=== PATIENT | male | born 1955 | race Caucasian/White ===

== ENCOUNTER 2016-07-17 07:59 | Emergency (ER) | payer OTHER ==
--- NOTE | ~2016-07-17 | EKG ---
PATIENT: LULY MALIK UNIT #: [id number] Ventricular Rate: 67 BPM Atrial Rate: 67 BPM P-R Interval: 130 ms QRS Duration: 82 ms Q-T Interval: 390 ms QTC Calculation(Bezet): 412 ms P Landing: 24 degrees Calculated R Landing: 10 degrees Calculated T Landing: 21 degrees Diagnosis Line: Normal sinus rhythm Diagnosis Line: Normal ECG Diagnosis Line: When compared with ECG of 29-MAY-2011 07:39, Diagnosis Line: No significant change was found Diagnosis Line: Confirmed by SASHA CLAROS MD ([id number]) on 07/18/2016 Diagnosis Line: 8:04:12 PM INTERPRETING MD: HARLAN RED
--- NOTE | ~2016-07-17 | CT71 ---
[facility] A Service of [facility] RADIOLOGY TEXT RESULTS PATIENT: LULY MALIK LOCATION: SED : 59 UNIT #: [id number] AGE: [address]: Trever Bravo MD SEX: M ORDER DR: [id number] [place] [id number] E MR#: [id number] Acc #: [id number] NAME: LULY MALIK : 1955 SEX: M STUDY DATE/TIME: 07/17/2016 8:47 UNIT: SED ROOM: STUDY DESCRIPTION: CT Head Wo Contrast Attending Physician: Trever Bravo M.D. Ordering Physician: Trever Bravo M.D. Primary Care Physician: No Primary Care Physician MEDICAL IMAGING REPORT This report is preliminary unless electronic signature is present. EXAM CT head INDICATION Syncope. Dizziness for [address] head without contrast. This CT exam was performed with one or more of the following radiation dose reduction techniques: automatic exposure control, adjustment of mA and/or kV according to patient size, and iterative reconstruction. COMPARISON CT head dated 05/28/2011. FINDINGS There is no acute intracranial hemorrhage, mass lesion, or acute infarct. There is mild chronic small vessel ischemic changes. There is an old infarct in the right basal ganglia right caudate nucleus. The ventricles and basilar cisterns are normal in size and configuration. No extraaxial collections. No acute osseous abnormalities. Visualized paranasal sinuses and mastoid air cells are clear. IMPRESSION 1. No acute intracranial findings. 2. Chronic small vessel ischemic changes. Old lacunar infarct in the right basal ganglia and right caudate nucleus. Dictated by... [facility] A Service [facility] RADIOLOGY TEXT RESULTS PATIENT: LULY MALIK LOCATION: SED : 59 UNIT #: [id number] AGE: [address]: Trever Bravo MD SEX: M ORDER DR: Hugo Randall M.D. THIS IS AN ELECTRONICALLY VERIFIED REPORT Hugo Randall M.D. at 07/17/2016 1:59 PM LINDA/nuria TD: 07/17/2016 11:41 JOB #: [id number] MEDICAL IMAGING REPORT Page 1 of 1
--- NOTE | ~2016-07-17 | CR72 ---
[facility]. [facility] A Service of [facility] RADIOLOGY TEXT RESULTS PATIENT: LULY MALIK LOCATION: SED : 59 UNIT #: [id number] AGE: [address]: Trever Bravo MD SEX: M ORDER DR: [id number] [place] [id number] E MR#: [id number] Acc #: [id number] NAME: LULY MALIK : 1955 SEX: M STUDY DATE/TIME: 07/17/2016 8:48 UNIT: SED ROOM: STUDY DESCRIPTION: CR Chest Single View Portable Attending Physician: Trever Bravo M.D. Ordering Physician: Trever Bravo M.D. Primary Care Physician: No Primary Care Physician MEDICAL IMAGING REPORT This report is preliminary unless electronic signature is present. EXAM AP portable chest DATE 07/17/2016 HISTORY Shortness breath and chest pain earlier today. Syncope. Symptoms began this morning. Hypotension. COMPARISON CT chest 03/10/2013. AP portable chest 03/10/2013. FINDINGS Stable mild cardiac enlargement. No acute airspace disease is seen. No pleural effusion or pneumothorax is identified. Benign calcified granulomatous changes are present within the right hilum. IMPRESSION 1. No acute chest findings. 2. Stable mild cardiac enlargement. 3. Benign calcified granulomatous changes. Dictated by... Sowmya Cooley M.D. THIS IS AN ELECTRONICALLY VERIFIED REPORT Sowmya Cooley M.D. at 07/18/2016 8:34 AM LLH/aa TD: 07/17/2016 12:55 [facility]. [facility] A Service of [facility] RADIOLOGY TEXT RESULTS PATIENT: LULY MALIK LOCATION: SED : 59 UNIT #: [id number] AGE: [address]: Trever Bravo MD SEX: M ORDER DR: JOB #: [id number] MEDICAL IMAGING REPORT Page 1 of 1
[~2016-07-17 07:59] MED LIST: ASPIRIN81 M1 PO; COZAAR PO; HYDROCHLOROTH12.5 MG PO; METOPROLOL TART25 MG PO; PLAVIX PO; PRAVASTATIN SOD20 MG PO; PRINIVIL40 MG PO; TOPROL XL 50 MG50 MG PO
[2016-07-17] MEDS ORDERED: CHLORTHALIDONE25 M1 PO (08:01)
[2016-07-17] MEDS ORDERED: AMLODIPINE BESYL5 MG PO (08:01)
[2016-07-17] MEDS ORDERED: ATORVASTATIN CA80 MG PO (08:01)
[2016-07-17] MEDS ORDERED: CLONIDINE HCL0.1 MG PO (08:02)
[2016-07-17 08:50] LABS: BASOPHIL# 0.1 X10e3 (0-0.3); BASOPHIL% 0.5 % (0-2.5); EOSINOPHIL% 0.3 % (0.0-7.0); HEMATOCRIT 39.7 % (38.0-50.0); HEMOGLOBIN 12.7 gm/dL (13.0-16.0); LYMPHOCYTE# 0.9 X10e3 (1.0-3.5); LYMPHOCYTE% 7.6 % (17.0-45.0); MEAN CELL VOLUME 79.5 FL (83-96); MEAN CORPUSCULAR HEMOGLOBIN 25.4 PG (28-34); MEAN PLATELET VOLUME 9.4 FL (6.5-11.5); MONOCYTE# 0.6 X10e3 (0-1.0); MONOCYTE% 4.8 % (3.0-12.0); NEUTROPHIL# 10.4 X10e3 (1.5-7.1); NEUTROPHIL% 86.8 % (40-75); PLATELET COUNT 256 X10e3 (140-420); RED BLOOD COUNT 4.99 X10e (3.90-5.60); RED CELL DISTRIBUTION WIDTH 17.9 % (11.0-15.5); WHITE BLOOD COUNT 11.9 X10e3 (4.0-10.5)
[2016-07-17 08:54] LABS: POC - CKMB <1.0 ng/mL (0.0-7.9); POC - TROPONIN <0.05 ng/mL (<=0.05)
[2016-07-17 09:02] LABS: DIFF IND NO
[2016-07-17 09:14] LABS: BILIRUBIN, DIRECT 0.1 mg/dL (0.0-0.2); BILIRUBIN,INDIRECT 0.3 mg/dL (0.0-0.9); BILIRUBIN,TOTAL 0.4 mg/dL (0.2-2.0); CALCIUM SERUM 8.8 mg/dL (8.4-10.2); POTASSIUM 3.8 mmol/L (3.5-5.1); PROTEIN TOTAL SERUM 7.4 g/dL (6.0-8.3)
[2016-07-17 09:15] LABS: PROTHROMBIN TIME (PATIENT) 11.7 SECONDS (9.5-12.4)
[2016-07-17 09:22] LABS: PARTIAL THROMBOPLASTIN TIME 22.6 SECONDS (25.6-38.1)
== END 2016-07-17 16:25 ==
LOC: SED 07:59
PROVIDERS: Emergency Medicine
DX: G45.0 Vertebro-basilar artery syndrome (principal); R55 Syncope and collapse; F17.210 Nicotine dependence, cigarettes, uncomplicated; I10 Essential (primary) hypertension; I25.2 Old myocardial infarction; Z90.49 Acquired absence of other specified parts of digestive tract
CPT/HCPCS: 70450; 71010; 80048; 80076; 82553; 82947; 84484; 85025; 85379; 85610; 85730; 93005; 96361; 96374; 99291; J2405